=== PATIENT | female | born 1955 | race Asian ===

== ENCOUNTER 2023-09-10 12:09 | Outpatient (CLI) | payer MEDICARE, OTHER | END 2023-09-10 23:59 | disposition critical access hospital (66) | LOC: EMS 12:09 | DX: I48.91 Unspecified atrial fibrillation (principal) | CPT/HCPCS: A0425; A0427 ==

== ENCOUNTER 2023-09-10 12:39 | Emergency (ER) | payer MEDICARE, OTHER ==
--- NOTE | 2023-09-10 12:52 | ED Physician Documentation ---
History of Present Illness - Stated complaint Stated Complaint: PALPITATIONS/SOA - History obtained from History obtained from: Patient - Additonal information Additional information: 68-year-old woman with history of hypertension, breast cancer and renal cell carcinoma. No history of cardiac issues. About 5 days ago developed flip- flopping in her heart that was painless that it bothered her especially at night. She feels generally ill with it but not short of breath or with chest pain. No history of heart problems. She went to the clinic and was noted to be in A-fib. Sent here, initial rates were 130 or so, 10 of diltiazem IV on route and now rate controlled. PD PAST MEDICAL HISTORY - Present Medications Home Medications: Ambulatory Orders Medication Instructions Recorded Confirmed Apixaban [Eliquis] 1 tab PO BID #60 tablet 09/10/23 dilTIAZem HCL [Diltiazem 24Hr ER 120 mg PO DAILY #30 tab 09/10/23 ([place])] - Allergies Allergies/Adverse Reactions: Allergies Allergy/AdvReac Type Severity Reaction Status Date / Time No Known Drug Allergies Allergy Verified 09/10/23 13:18 PD ED PE NORMAL - Vitals Vital signs reviewed: Yes - General General: Alert and oriented X 3, No acute distress - Cardiac Cardiac: Other (Irregularly irregular without murmur) - Respiratory Respiratory: No respiratory distress, Clear bilaterally - Extremities Extremities: No edema, No calf tenderness / cord - Neuro Neuro: Alert and oriented X 3 Results - Vitals Vitals: Vital Signs - 24 hr 09/10/23 12:52 Temperature 36.8 C Heart Rate 100 Respiratory 16 Rate Blood Pressure 160/90 H O2 Saturation 99 Oxygen O2 Source Room air - EKG (time done) 1342 EKG releavant findings:: EKG personally interpreted by author of this note. Relevant findings are: Rate: Rate (enter#) (86) Rhythm: Atrial fibrillation [place]: Normal QRS: Normal Ischemia: Normal ST segments - Labs Labs: Laboratory Tests 09/10/23 09/10/23 12:58 12:58 WBC 3.2 L RBC 5.43 H Hgb 14.2 Hct 45.8 MCV 84.3 MCH 26.2 L MCHC 31.0 L RDW 13.2 Plt Count 243 MPV 10.2 Neut # (Auto) 1.7 Lymph # (Auto) 1.1 L [place] # (Auto) 0.3 Eos # (Auto) 0.1 Baso # (Auto) 0.0 Absolute Nucleated RBC 0.00 Nucleated RBC % 0.0 Sodium 141 Potassium 4.4 Chloride 107 Carbon Dioxide 26 Anion Gap 8.0 BUN 19 Creatinine 1.3 Estimated GFR (MDRD) 41 L Glucose 104 Calcium 9.7 Magnesium 1.7 Total Bilirubin 1.5 H AST 12 ALT 10 Alkaline Phosphatase 34 L Total Protein 7.2 Albumin 4.0 Globulin 3.2 Albumin/Globulin Ratio 1.3 TSH 1.67 PD Medical Decision Making - ED course ED course: 60-year-old woman with new onset A-fib. It sounds like it has been going on for up to 5 days and she is not anticoagulated so I do not think she is a good candidate for consideration for ED cardioversion. On arrival here she is rate controlled after the administration of 10 mg of diltiazem prior to arrival. She is also maintained routinely on 25 mg of carvedilol twice daily. There is nothing in the history or physical to suggest ischemia. She was administered a DOAC after discussion, and also an oral dose of diltiazem. Her chads 2 VASc score is 3 suggesting that anticoagulation is appropriate. CBC and CMP are generally unremarkable save mild lymphopenia which is a nonspecific finding. Departure - Departure Disposition: 01 Home, Self Care Clinical Impression: Atrial fibrillation Qualifiers: Atrial fibrillation type: unspecified Qualified Code(s): I48.91 - Unspecified atrial fibrillation Condition: Good Record reviewed to determine appropriate education?: Yes Instructions: Atrial Fibrillation Dc Prescriptions: dilTIAZem HCL [Diltiazem 24Hr ER ([place])] 120 mg PO DAILY #30 tab Apixaban [Eliquis] 1 tab PO BID #60 tablet Comments: You were seen today for new onset atrial fibrillation. As a general rule it is not considered to be safe to cardiovert you at this time since you may have been in it more than 48 hours. Cardioversion will be an option after you have been on an anticoagulant for 2 weeks, or if you see a sugar chipper machine operator and they do what is called a transesophageal echocardiogram it could be done at that time once clots in the atria are ruled out. Follow-up with your primary care physician, presume they will refer you to cardiology and obtain transthoracic echocardiography. Continue current medications but we are adding a blood thinner and a medication to keep your heart rate down which should make the symptoms more tolerable. Return for new or worsening symptoms.
[2023-09-10] MEDS: APIXABAN 5 MG TABLET PO STA (13:01)
[2023-09-10] MEDS: diltiaZEM CD 120 MG CAPSULE PO STA (13:01)
[2023-09-10 13:02] LABS: BASOPHILS % (AUTO) 0.6 %; EOSINOPHILS # (AUTO) 0.1 10^3/uL (0.0-0.7); EOSINOPHILS % (AUTO) 2.5 %; HCT - HEMATOCRIT 45.8 % (37.0-47.0); HGB - HEMOGLOBIN 14.2 g/dL (12.0-16.0); LYMPHOCYTES # (AUTO) 1.1 10^3/uL (1.5-3.5); LYMPHOCYTES % (AUTO) 32.7 %; MEAN CORPUSCULAR HEMOGLOBIN 26.2 pg (27.0-31.0); MEAN CORPUSCULAR VOLUME 84.3 fL (81.0-99.0); MEAN PLATELET VOLUME 10.2 fL (7.9-10.8); MONOCYTES # (AUTO) 0.3 10^3/uL (0.0-1.0); MONOCYTES % (AUTO) 9.7 %; NEUTROPHILS # (AUTO) 1.7 10^3/uL (1.5-6.6); NEUTROPHILS % (AUTO) 54.2 %; PLT - PLATELET COUNT 243 10^3/uL (130-450); RED BLOOD COUNT 5.43 10^6/uL (4.20-5.40); RED CELL DISTRIBUTION WIDTH 13.2 % (12.0-15.0); WHITE BLOOD COUNT 3.2 x10^3/uL (4.8-10.8)
[2023-09-10 13:10] VITALS: O2SAT 99
[2023-09-10 13:11] LABS: MAGNESIUM 1.7 mg/dL (1.7-2.3)
[2023-09-10 13:17] LABS: ALBUMIN/GLOBULIN RATIO 1.3 (1.0-2.2); BILIRUBIN,TOTAL 1.5 mg/dL (0.2-1.0); CALCIUM 9.7 mg/dL (8.5-10.3); CREATININE 1.3 mg/dL (0.6-1.3); POTASSIUM 4.4 mmol/L (3.5-4.5); TOTAL PROTEIN 7.2 g/dL (6.4-8.9)
[2023-09-10 13:30] LABS: THYROID STIMULATING HORMONE 1.67 uIU/mL (0.34-5.60)
[2023-09-10 14:06] VITALS: BP 144/74
== END 2023-09-10 13:58 | disposition home or self-care (01) ==
LOC: MERGE 12:39 → ED 12:39 → EDSEX 12:39 → ED 13:58
DX: I48.91 Unspecified atrial fibrillation (principal); Z86.03 Personal history of neoplasm of uncertain behavior
CPT/HCPCS: 36415; 80053; 83735; 84443; 85025; 93005; 99283; A9270

== ENCOUNTER 2023-09-12 04:08 | Emergency (ER) | payer MEDICARE, OTHER ==
--- NOTE | 2023-09-12 04:37 | ED Physician Documentation ---
History of Present Illness - Stated complaint Stated Complaint: ELEVATED HR - Chief complaint Chief Complaint: Cardiac - History obtained from History obtained from: Patient - Additonal information Additional information: 68-year-old woman with newly diagnosed atrial fibrillation, just placed on diltiazem extended release 120 mg daily and DOAC, presents with palpitations waking her from sleep around 2 AM. Patient denies chest pain, shortness of breath, dizziness, nausea. Today is day 3 of diltiazem. She has reached out to her primary care provider for referral to cardiology. PD PAST MEDICAL HISTORY - Past Medical History Past Medical History: Yes Cardiovascular: Hypertension, Atrial fibrillation GI: Other Other Past Medical History: Colon cancer - Past Surgical History Past Surgical History: Yes General: Cholecystectomy - Present Medications Home Medications: Ambulatory Orders Medication Instructions Recorded Confirmed Apixaban [Eliquis] 1 tab PO BID #60 tablet 09/10/23 09/12/23 dilTIAZem HCL [Diltiazem 24Hr ER 120 mg PO DAILY #30 tab 09/10/23 09/12/23 ([place])] Telmisartan 80 mg PO DAILY 09/12/23 09/12/23 amLODIPine [Norvasc] 5 mg PO DAILY 09/12/23 09/12/23 carvediloL [Coreg] 25 mg PO DAILY 09/12/23 09/12/23 - Allergies Allergies/Adverse Reactions: Allergies Allergy/AdvReac Type Severity Reaction Status Date / Time codeine AdvReac Emesis Verified 09/12/23 04:30 latex AdvReac Itching Verified 09/12/23 04:30 - Social History Does the pt smoke?: No Smoking Status: Never smoker Does the pt drink ETOH?: No Does the pt have substance abuse?: No - Immunizations Immunizations are current?: Yes - POLST Patient has POLST: No PD ED PE NORMAL - Vitals Vital signs reviewed: Yes - General General: Alert and oriented X 3, No acute distress, Well developed/nourished - HEENT HEENT: Atraumatic, PERRL, EOMI, Moist mucous membranes, Pharynx benign - Neck Neck: Supple, no meningeal sign - Cardiac Cardiac: Other (Regular rate, irregular rhythm) - Respiratory Respiratory: No respiratory distress, Clear bilaterally Results - Vitals Vitals: Vital Signs - 24 hr 09/12/23 04:15 Temperature 36.2 C L Heart Rate 103 H Respiratory 21 Rate Blood Pressure 137/93 H O2 Saturation 98 Oxygen O2 Source Room air - EKG (time done) 0421 EKG releavant findings:: EKG personally interpreted by author of this note. Relevant findings are: Rate: Rate (enter#) (100) Rhythm: Atrial fibrillation [place]: Normal QRS: Normal Ischemia: Normal ST segments - Labs Labs: Laboratory Tests 09/12/23 09/12/23 04:50 04:50 WBC 3.6 L RBC 5.23 Hgb 13.6 Hct 44.4 MCV 84.9 MCH 26.0 L MCHC 30.6 L RDW 13.1 Plt Count 237 MPV 10.4 Neut # (Auto) 1.9 Lymph # (Auto) 1.4 L [place] # (Auto) 0.3 Eos # (Auto) 0.1 Baso # (Auto) 0.0 Absolute Nucleated RBC 0.00 Nucleated RBC % 0.0 Sodium 138 Potassium 4.3 Chloride 105 Carbon Dioxide 25 Anion Gap 8.0 BUN 24 H Creatinine 1.5 H Estimated GFR (MDRD) 35 L Glucose 99 Calcium 10.0 Total Bilirubin 1.3 H AST 12 ALT 12 Alkaline Phosphatase 35 L Total Protein 7.1 Albumin 4.1 Globulin 3.0 Albumin/Globulin Ratio 1.4 Lipase 24 PD Medical Decision Making - ED course ED course: 68-year-old woman with history of recently diagnosed A-fib presents with heart palpitations waking her from sleep at 2 AM. She is currently on 120 mg extended release diltiazem and may benefit from increasing her dose. Advised patient to take blood pressure prior to administration of diltiazem and then taking 2 pills once daily rather than the usual 120 mg as long as her blood pressure is greater than 120/80. Plan to follow-up outpatient with cardiology. Return precautions given. Departure - Departure Disposition: 01 Home, Self Care Clinical Impression: Afib Condition: Stable Instructions: Atrial Fibrillation Dc Comments: You were seen in the emergency department for afib. Your labwork looked okay except for some mild kidney issues (creatinine 1.5). It looks like you have had high creatinine in the past. You can have this rechecked in a week or two. Make sure you stay well hydrated in the meantime. Please follow-up with your primary care provider and return to the emergency department if you have any new or worsening symptoms or other concerns. Please take your blood pressure prior to administration of your 120mg diltiazem. As long as your blood pressure is greater than 120/80 and heart rate >60, you can take 2 pills daily rather than the previously prescribed 1 pill of 120 mg diltiazem. Forms: PCP List
[2023-09-12 05:24] LABS: BASOPHILS % (AUTO) 0.6 %; EOSINOPHILS # (AUTO) 0.1 10^3/uL (0.0-0.7); EOSINOPHILS % (AUTO) 3.3 %; HCT - HEMATOCRIT 44.4 % (37.0-47.0); HGB - HEMOGLOBIN 13.6 g/dL (12.0-16.0); LYMPHOCYTES # (AUTO) 1.4 10^3/uL (1.5-3.5); LYMPHOCYTES % (AUTO) 37.2 %; MEAN CORPUSCULAR HGB CONC 30.6 g/dL (32.0-36.0); MEAN CORPUSCULAR VOLUME 84.9 fL (81.0-99.0); MEAN PLATELET VOLUME 10.4 fL (7.9-10.8); MONOCYTES # (AUTO) 0.3 10^3/uL (0.0-1.0); MONOCYTES % (AUTO) 7.4 %; NEUTROPHILS # (AUTO) 1.9 10^3/uL (1.5-6.6); NEUTROPHILS % (AUTO) 51.2 %; PLT - PLATELET COUNT 237 10^3/uL (130-450); RED BLOOD COUNT 5.23 10^6/uL (4.20-5.40); RED CELL DISTRIBUTION WIDTH 13.1 % (12.0-15.0); WHITE BLOOD COUNT 3.6 x10^3/uL (4.8-10.8)
[2023-09-12 05:52] LABS: ALBUMIN 4.1 g/dL (3.2-5.5); ALBUMIN/GLOBULIN RATIO 1.4 (1.0-2.2); BILIRUBIN,TOTAL 1.3 mg/dL (0.2-1.0); CREATININE 1.5 mg/dL (0.6-1.3); POTASSIUM 4.3 mmol/L (3.5-4.5); TOTAL PROTEIN 7.1 g/dL (6.4-8.9)
[2023-09-12 06:36] VITALS: BP 131/89; O2SAT 99
== END 2023-09-12 06:33 | disposition home or self-care (01) ==
LOC: ED 04:08
DX: I48.91 Unspecified atrial fibrillation (principal); Z79.01 Long term (current) use of anticoagulants; I10 Essential (primary) hypertension
CPT/HCPCS: 36415; 80053; 83690; 85025; 93005; 99284